=== PATIENT | male | born 1995 | race Caucasian/White ===

== ENCOUNTER 2017-07-31 21:48 | Emergency (ER) | payer OTHER ==
[~2017-07-31] VITALS: Ht 167.6 cm; Wt 70.3 kg
[2017-07-31 22:00] VITALS: BP_SYST 120
[2017-07-31 22:03] VITALS: BP_SYST 150
--- NOTE | 2017-07-31 22:08 | NUR ---
Patient to [facility] [place] for evaluation. Side rails up. Report given to ADAM Del Rio.
--- NOTE | 2017-07-31 22:10 | NUR ---
Patient AAOx4, ambulatory. Patient states having pain to upper middle abdomen area with pain scale 7/10 for approximately "1 month" prior to ER visit. Patient +nausea, denies vomiting and diarrhea at this time. Patient states pain does not radiate. Patient denies any other complaints.
--- NOTE | 2017-07-31 23:04 | NUR ---
ER at bedside examining patient.
--- NOTE | 2017-07-31 23:10 | NUR ---
Patient given written and verbal discharge instructions by Dr Gurrola and verbalizes understanding. ER MD discussed with patient the results and treatment provided. Patient in stable condition. ID arm band removed by Dr Gurrola. Rx of Pepcid 20 mg tab given. Patient educated on pain management and to follow up with PMD. Pain Scale 3/10. Opportunity for questions provided and answered by Dr. Gurrola.
== END 2017-07-31 23:10 | disposition home or self-care (01) ==
LOC: SED 21:48
DX: K27.9 Peptic ulcer, site unspecified, unspecified as acute or chronic, without hemorrhage or perforation (principal)
CPT/HCPCS: 99282